=== PATIENT | female | born 1980 | race American Indian/Alaskan Native ===

== ENCOUNTER 2017-02-01 22:41 | Emergency (ER) | payer OTHER ==
[2017-02-01 22:58] VITALS: BP 111/70
[2017-02-01 23:44] LABS: Basophils % (Auto) 0.4 % (0.0-1.8); Eosinophils % (Auto) 2.5 % (0.0-4.3); Hematocrit 30.9 % (30.3-42.9); Mean Corpuscular HGB Conc 33 % (30-34); Mean Corpuscular Hemoglobin 28 pg (28-32); Mean Corpuscular Volume 87 fl (79-97); Platelet Count 287 K/mm3 (140-440); Red Blood Count 3.57 M/mm3 (3.65-5.03); Red Cell Distribution Width 16.8 % (13.2-15.2); White Blood Count 8.9 K/mm3 (4.5-11.0)
--- NOTE | 2017-02-02 00:03 | Emergency Department Report ---
HPI - General Chief Complaint: Vaginal Bleeding Time Seen by Provider: 02/01/17 23:54 - HPI HPI: This is a 36-year-old Afro-[place] female who presents emergency Department with 2 complaints. First the patient has been having a generalized headache for the past 24 hours. She does have a history of headaches that occur "all the time" and says that this feels similar to those. The second issue is that the patient said that she took a home test on Monday, 2 days ago, and it was positive at that time. If she was positive today that would make her with one previous miscarriage. The patient tried a dose of Tylenol for her headache, as she did not want to take anything else while , and says that it did not do much for her discomfort. She is sensitive to light but otherwise denies any slurred speech, or any neurological deficits. She does not have a primary care doctor or MACHINE COREMAKER at this time. The patient had some vaginal bleeding/spotting that began this morning. She denies any abdominal pain however. ED Past Medical Hx - Past Medical History Previous Medical History?: Yes Hx Headaches / Migraines: Yes Hx Asthma: Yes (as child) Additional medical history: Childbirth - Surgical History Past Surgical History?: Yes Additional Surgical History: x 4 - Social History Smoking Status: Never Smoker Substance Use Type: None - Medications Home Medications: Home Medications Medication Instructions Recorded Confirmed Last Taken Type Ibuprofen [Motrin 800 MG tab] 800 mg PO Q8H #45 tablet 01/13/15 05/12/16 Unknown Rx traMADol [Ultram 50 MG tab] 50 mg PO Q6HR PRN #20 tablet 01/13/15 05/12/16 Unknown Rx Butalbit/Acetamin/Caff/Codeine 1 cap PO Q6HR PRN #16 cap 05/12/16 Unknown Rx [Fioricet/Codeine [id number]] Nitrofurantoin [place]/M-Cryst 100 mg PO Q12HR #14 capsule 02/02/17 Unknown Rx [Macrobid CAP] Vit No.130/Iron/FA 1 each PO QDAY #30 tablet 02/02/17 Unknown Rx [ Tablet] ED Review of Systems ROS: Stated complaint: PREG/VAG BLEEDING/MOSHER Other details as noted in HPI Comment: All other systems reviewed and negative Constitutional: denies: chills, fever Eyes: denies: eye pain, eye discharge, vision change ENT: denies: ear pain, throat pain Respiratory: denies: cough, shortness of breath, wheezing Cardiovascular: denies: chest pain, palpitations Gastrointestinal: denies: abdominal pain, nausea, diarrhea Genitourinary: other (vaginal spotting). denies: urgency, dysuria, discharge Musculoskeletal: denies: back pain, joint swelling, arthralgia Skin: denies: rash, lesions Neurological: headache. denies: weakness, numbness, paresthesias Physical Exam - Physical Exam Vital Signs: Vital Signs 02/01/17 22:45 Temperature 98.6 F Pulse Rate 89 Respiratory 20 Rate Blood Pressure 111/70 [Right] O2 Sat by Pulse 100 Oximetry Physical Exam: GENERAL: The patient is well-developed well-nourished. HEENT: Normocephalic. Atraumatic. Extraocular motions are intact. Patient has moist mucous membranes. Pupils equal reactive to light bilaterally. Patient has some photophobia. No nystagmus. NECK: Supple. Trachea is midline. CHEST/LUNGS: Clear to auscultation. There is no respiratory distress noted. HEART/CARDIOVASCULAR: Regular. There is no tachycardia. There is no gallop rub or murmur. ABDOMEN: Abdomen is soft, nontender. Patient has normal bowel sounds. There is no abdominal distention. SKIN: There is no rash. There is no edema. There is no diaphoresis. NEURO: The patient is awake, alert, and oriented. The patient is cooperative. The patient has no focal neurologic deficits. The patient has normal speech. MUSCULOSKELETAL: There is no tenderness or deformity. There is no limitation range of motion. There is no evidence of acute injury. ED Course Vital Signs 02/01/17 22:45 Temperature 98.6 F Pulse Rate 89 Respiratory 20 Rate Blood Pressure 111/70 [Right] O2 Sat by Pulse 100 Oximetry ED Medical Decision Making - Lab Data Result diagrams: 02/01/17 23:14 02/01/17 23:14 - Radiology Data Radiology results: report reviewed Transvaginal/ ultrasound shows a single live intrauterine at about 7 weeks one day. - Medical Decision Making 36-year-old female presents to the emergency department with complaint of vaginal bleeding while after having a home test a few days ago. She also complains of a headache for the past 24 hours but says that this is a typical headache for her. There is no focal, motor or sensory deficits. Cranial nerves are intact. Patient's labs are mostly unremarkable. There is a mild urinary tract infection with 17 white blood cells in the urine. Patient does have a elevated healthy hormone. For this reason she had a transvaginal/ ultrasound came back showing a live intrauterine at 7 weeks. Patient was given a 1 g dose of Tylenol for her headache. She is feeling much better prior to discharge. She was given Macrobid for the urinary tract infection, vitamins and multiple referrals for MACHINE COREMAKER. She will return to the ER with any worsening of her symptoms or any acute distress. - Differential Diagnosis tension headache, migraine headache, , fibroids Critical Care Time: No (tension headache, migraine headache, , fibroids , miscarriage) Critical care attestation.: If time is entered above; I have spent that time in minutes in the direct care of this critically ill patient, excluding procedure time. ED Disposition Clinical Impression: Threatened miscarriage Qualifiers: Weeks of gestation: less than 8 weeks Qualified Code(s): Z3A.01 - Less than 8 weeks gestation of UTI (urinary tract infection) Qualifiers: Urinary tract infection type: acute cystitis Hematuria presence: without hematuria Qualified Code(s): N30.00 - Acute cystitis without hematuria Headache Qualifiers: Headache type: unspecified Headache chronicity pattern: acute headache Intractability: not intractable Qualified Code(s): R51 - Headache Disposition: DISCHARGED TO HOME OR SELFCARE Is pt being admited?: No Condition: Stable Instructions: (ED), Urinary Tract Infection in Women (ED), Acute Headache (ED), Threatened Miscarriage (ED) Additional Instructions: Please follow-up with an MACHINE COREMAKER in the next few days. Return to the emergency department with any worsening of your symptoms or any acute distress. Prescriptions: Nitrofurantoin [place]/M-Cryst [Macrobid CAP] 100 mg PO Q12HR #14 capsule Vit No.130/Iron/FA [ Tablet] 1 each PO QDAY #30 tablet Referrals: PRIMARY MD MITCH [Primary Care Provider] - 3-5 Days AGUSTIN VALDOVINOS MD [Staff Physician] - 3-5 Days MANUEL AZUL MD [Staff Physician] - 3-5 Days Time of Disposition: 01:32
[2017-02-02 00:07] LABS: Alanine Aminotransferase 8 units/L (7-56); Albumin 3.9 g/dL (3.9-5); Albumin/Globulin Ratio 1.4 %; Alkaline Phosphatase 49 units/L (35-129); Anion Gap 16 mmol/L; BUN/Creatinine Ratio 12.85; Bilirubin,Total 0.4 mg/dL (0.1-1.2); Blood Urea Nitrogen 9 mg/dL (7-17); Calcium 8.6 mg/dL (8.4-10.2); Carbon Dioxide 25 mmol/L (22-30); Glucose 79 mg/dL (65-100); Lipase 32 units/L (13-60); Potassium 3.6 mmol/L (3.6-5.0); Sodium 139 mmol/L (137-145); Total Protein 6.7 g/dL (6.3-8.2)
--- NOTE | 2017-02-02 00:53 | Ultrasound Report ---
FINAL REPORT PROCEDURE: US OB TECHNIQUE: Real-time transabdominal and transvaginal sonography of the uterus, placenta, amniotic fluid, adnexa, and fetus was performed with image documentation. Measurements were obtained to determine age/size. M-mode Doppler was used to document heartbeat. CPT 78357 and 98469 HISTORY: , bleeding. COMPARISON: No prior studies are available for comparison. FINDINGS: LMP: 12/21/2016. Clinical age: 6 weeks 0 days. EDC: 09/27/2017. CRL: 10.5 mm, which corresponds to a gestational age of: 7 weeks, 1 days. Yolk Sac: Normal. Embryonic Cardiac Activity: 136 beats per minute. Gestational Sac: Normal. Amniotic fluid: Normal. Cervix: Normal. Right Ovary: 3.5 x 3.2 x 3.3 centimeters. Normal flow. Hypoechoic complex 3 x 2.4 x 2.8 centimeter lesion. Left Ovary: 2.4 x 1.4 x 2.3 centimeters. Normal flow. Uterus: 10.9 x 6 x 6.8 centimeters. Estimated delivery date: 09/19/2017. Other: Minimal free fluid. IMPRESSION: 1. Single live intrauterine gestation at approximately 7 weeks, 1 day. Minimal free fluid. 2. EDC by US 09/19/2017. 3. Complete anatomic survey at 18-20 weeks suggested. At this time probable right ovarian cyst can be re-evaluated.
--- NOTE | 2017-02-02 00:57 | Ultrasound Report ---
FINAL REPORT PROCEDURE: US OB TECHNIQUE: Real-time transabdominal and transvaginal sonography of the uterus, placenta, amniotic fluid, adnexa, and fetus was performed with image documentation. Measurements were obtained to determine age/size. M-mode Doppler was used to document heartbeat. CPT 62170 and 09572 HISTORY: , bleeding. COMPARISON: No prior studies are available for comparison. FINDINGS: LMP: 12/21/2016. Clinical age: 6 weeks 0 days. EDC: 09/27/2017. CRL: 10.5 mm, which corresponds to a gestational age of: 7 weeks, 1 days. Yolk Sac: Normal. Embryonic Cardiac Activity: 136 beats per minute. Gestational Sac: Normal. Amniotic fluid: Normal. Cervix: Normal. Right Ovary: 3.5 x 3.2 x 3.3 centimeters. Normal flow. Hypoechoic complex 3 x 2.4 x 2.8 centimeter lesion. Left Ovary: 2.4 x 1.4 x 2.3 centimeters. Normal flow. Uterus: 10.9 x 6 x 6.8 centimeters. Estimated delivery date: 09/19/2017. Other: Minimal free fluid. IMPRESSION: 1. Single live intrauterine gestation at approximately 7 weeks, 1 day. Minimal free fluid. 2. EDC by US 09/19/2017. 3. Complete anatomic survey at 18-20 weeks suggested. At this time probable right ovarian cyst can be re-evaluated. O
[2017-02-02 01:00] LABS: Bilirubin,Urine NEG (Negative); Blood,Urine MOD (Negative); Ketones,Urine NEG (Negative); Leukocyte Esterase,Urine TR (Negative); Mucus,Urine 2+ /HPF; Nitrite,Urine NEG (Negative)
[2017-02-02] MEDS ORDERED: TYLENOL PO ONE (01:30)
[2017-02-02] MEDS ORDERED: TYLENOL ONE (01:34)
== END 2017-02-02 01:40 | disposition home or self-care (01) ==
LOC: ED 22:41
DX: O20.0 Threatened abortion (principal); Z3A.01 Less than 8 weeks gestation of pregnancy; O23.41 Unspecified infection of urinary tract in pregnancy, first trimester; N39.0 Urinary tract infection, site not specified; R51 Headache; J45.909 Unspecified asthma, uncomplicated
CPT/HCPCS: 36415; 76801; 76817; 80053; 81001; 83690; 84702; 84703; 85025; 86850; 86900; 86901; 99284

== ENCOUNTER 2017-03-08 19:46 | Emergency (ER) | payer OTHER, MEDICAID ==
[2017-03-08] MEDS ORDERED: TYLENOL PO ONE (20:33)
[2017-03-08 21:06] LABS: Basophils % (Auto) 0.3 % (0.0-1.8); Eosinophils % (Auto) 2.6 % (0.0-4.3); Hematocrit 29.4 % (30.3-42.9); Hemoglobin 9.6 gm/dl (10.1-14.3); Mean Corpuscular HGB Conc 33 % (30-34); Mean Corpuscular Hemoglobin 28 pg (28-32); Mean Corpuscular Volume 85 fl (79-97); Platelet Count 297 K/mm3 (140-440); Red Blood Count 3.47 M/mm3 (3.65-5.03); Red Cell Distribution Width 16.1 % (13.2-15.2); White Blood Count 9.6 K/mm3 (4.5-11.0)
[2017-03-09 00:30] LABS: Bilirubin,Urine NEG (Negative); Blood,Urine MOD (Negative); Ketones,Urine NEG (Negative); Leukocyte Esterase,Urine NEG (Negative); Mucus,Urine FEW /HPF; Nitrite,Urine NEG (Negative); Protein,Urine <15 mg/dL mg/dL (Negative); Urobilinogen,Urine < 2.0 mg/dL (<2.0)
--- NOTE | 2017-03-09 00:38 | Ultrasound Report ---
FINAL REPORT PROCEDURE: US OB TRANSVAGINAL TECHNIQUE: Real-time transabdominal and transvaginal sonography of the uterus, placenta, amniotic fluid, adnexa, and fetus was performed with image documentation. Measurements were obtained to determine age/size. M-mode Doppler was used to document heartbeat. CPT 14585 and 04758 HISTORY: preg, vag bleeding COMPARISON: 02/01/2017 FINDINGS: ADDITIONAL GESTATION: None. CRL: 63 mm, which corresponds to a gestational age of: 12 weeks, 5 days. Yolk Sac: Normal. Embryonic Cardiac Activity: 153 beats per minute Gestational Sac: Normal. Amniotic fluid: Normal. Cervix: Normal. Right Ovary: There is a 3 centimeter cyst on the right ovary. Left Ovary: Normal. Estimated delivery date: 09/15/2017 Uterus and adnexa: Normal. IMPRESSION: 1. Single live intrauterine gestation at approximately 12 weeks, 5 days. 2. EDC by US 09/15/2017 3. Complete anatomic survey at 18-20 weeks suggested.
--- NOTE | 2017-03-09 00:39 | Ultrasound Report ---
FINAL REPORT PROCEDURE: US OB transabdominal and TRANSVAGINAL TECHNIQUE: Real-time transabdominal and transvaginal sonography of the uterus, placenta, amniotic fluid, adnexa, and fetus was performed with image documentation. Measurements were obtained to determine age/size. M-mode Doppler was used to document heartbeat. CPT 72666 and 86060 HISTORY: preg, vag bleeding COMPARISON: 02/01/2017 FINDINGS: ADDITIONAL GESTATION: None. CRL: 63 mm, which corresponds to a gestational age of: 12 weeks, 5 days. Yolk Sac: Normal. Embryonic Cardiac Activity: 153 beats per minute Gestational Sac: Normal. Amniotic fluid: Normal. Cervix: Normal. Right Ovary: There is a 3 centimeter cyst on the right ovary. Left Ovary: Normal. Estimated delivery date: 09/15/2017 Uterus and adnexa: Normal. IMPRESSION: 1. Single live intrauterine gestation at approximately 12 weeks, 5 days. 2. EDC by US 09/15/2017 3. Complete anatomic survey at 18-20 weeks suggested.
--- NOTE | 2017-03-09 01:40 | Emergency Department Report ---
ED Abdominal Pain HPI - General Chief Complaint: Vaginal Bleeding Stated Complaint: 12 WKS PREG/SPOTTING BLOOD/CRAMPING Time Seen by Provider: 03/09/17 01:26 Source: patient Mode of arrival: Ambulatory Limitations: No Limitations - History of Present Illness Initial Comments: Patient is a 36-year-old female at approximately 12 weeks gestation presenting to the ER with abdominal pain and vaginal spotting. Patient reports the abdominal pain started after she was lifting a box at work and then she noticed some bright red blood spotting. Patient does report when she was lifting a heavy box she felt some pulling of right lower quadrant of her abdomen. Patient has care with high risk. Otherwise no other complaints MD Complaint: abdominal pain Severity scale (0 -10): 8 - Related Data Previous Rx's Medication Instructions Recorded Last Taken Type Ibuprofen [Motrin 800 MG tab] 800 mg PO Q8H #45 tablet 01/13/15 Unknown Rx traMADol [Ultram 50 MG tab] 50 mg PO Q6HR PRN #20 tablet 01/13/15 Unknown Rx Butalbit/Acetamin/Caff/Codeine 1 cap PO Q6HR PRN #16 cap 05/12/16 Unknown Rx [Fioricet/Codeine [id number]] Nitrofurantoin [place]/M-Cryst 100 mg PO Q12HR #14 capsule 02/02/17 Unknown Rx [Macrobid CAP] Vit No.130/Iron/FA 1 each PO QDAY #30 tablet 02/02/17 Unknown Rx [ Tablet] Allergies Allergy/AdvReac Type Severity Reaction Status Date / Time No Known Allergies Allergy Verified 01/13/15 23:10 ED Review of Systems ROS: Stated complaint: 12 WKS PREG/SPOTTING BLOOD/CRAMPING Other details as noted in HPI Comment: All other systems reviewed and negative ED Past Medical Hx - Past Medical History Previous Medical History?: Yes Hx Headaches / Migraines: Yes Hx Asthma: Yes (as child) Additional medical history: Childbirth - Surgical History Past Surgical History?: Yes Additional Surgical History: x 4 - Social History Smoking Status: Never Smoker Substance Use Type: None - Medications Home Medications: Home Medications Medication Instructions Recorded Confirmed Last Taken Type Ibuprofen [Motrin 800 MG tab] 800 mg PO Q8H #45 tablet 01/13/15 05/12/16 Unknown Rx traMADol [Ultram 50 MG tab] 50 mg PO Q6HR PRN #20 tablet 01/13/15 05/12/16 Unknown Rx Butalbit/Acetamin/Caff/Codeine 1 cap PO Q6HR PRN #16 cap 05/12/16 Unknown Rx [Fioricet/Codeine [id number]] Nitrofurantoin [place]/M-Cryst 100 mg PO Q12HR #14 capsule 02/02/17 Unknown Rx [Macrobid CAP] Vit No.130/Iron/FA 1 each PO QDAY #30 tablet 02/02/17 Unknown Rx [ Tablet] ED Physical Exam - General Limitations: No Limitations General appearance: alert, in no apparent distress - Head Head exam: Present: atraumatic, normocephalic - Eye Eye exam: Present: normal appearance - ENT ENT exam: Present: mucous membranes moist - Neck Neck exam: Present: normal inspection - Respiratory Respiratory exam: Present: normal lung sounds bilaterally. Absent: respiratory distress - Cardiovascular Cardiovascular Exam: Present: regular rate, normal rhythm. Absent: systolic murmur, diastolic murmur, rubs, gallop - GI/Abdominal GI/Abdominal exam: Present: soft, tenderness (MILD rlq), normal bowel sounds. Absent: distended, guarding, rebound - Extremities Exam Extremities exam: Present: normal inspection - Back Exam Back exam: Present: normal inspection - Neurological Exam Neurological exam: Present: alert, oriented X3 - Psychiatric Psychiatric exam: Present: normal affect, normal mood - Skin Skin exam: Present: warm, dry, intact, normal color. Absent: rash ED Course Vital Signs 03/08/17 20:26 Temperature 99.1 F Pulse Rate 93 H Respiratory 18 Rate Blood Pressure 127/70 O2 Sat by Pulse 100 Oximetry ED Medical Decision Making - Lab Data Result diagrams: 03/08/17 20:38 - Radiology Data Radiology results: report reviewed Pelvic ultrasound: Live IUP dated at 12 weeks, heart rate 153 bpm - Medical Decision Making I did discuss the results with the patient. I did express to her the concern for RLQ quadrant pain and for appendicitis. Pt does reports a mechanical muscle strain mechanism to explain the RLQ pain, but to make the patient aware an appendicitis is not completely ruled out, though unlikely. Pt understood and will return to the ED if you abdominal pain does not improve and/or new symptoms of fevers, chills, NVD, SOB, or back pain. Critical care attestation.: If time is entered above; I have spent that time in minutes in the direct care of this critically ill patient, excluding procedure time. ED Disposition Clinical Impression: Abdominal pain, Vaginal bleeding in Disposition: DISCHARGED TO HOME OR SELFCARE Is pt being admited?: No Condition: Stable Instructions: Abdominal Pain (ED), Threatened Miscarriage (ED) Additional Instructions: PLEASE MONITOR YOUR ABDOMINAL PAIN, IF THIS DOSE NOT IMPROVE, PLEASE RETURN TO THE ED IMMEDIATELY Referrals: PRIMARY CARE, [Primary Care Provider] - 3-5 Days
[2017-03-09 03:17] VITALS: BP 130/78
== END 2017-03-09 03:10 | disposition home or self-care (01) ==
LOC: ED 19:46
DX: O46.91 Antepartum hemorrhage, unspecified, first trimester (principal); O26.851 Spotting complicating pregnancy, first trimester; O99.511 Diseases of the respiratory system complicating pregnancy, first trimester; R10.9 Unspecified abdominal pain; J45.909 Unspecified asthma, uncomplicated; G43.909 Migraine, unspecified, not intractable, without status migrainosus; Z3A.12 12 weeks gestation of pregnancy
CPT/HCPCS: 36415; 76801; 76817; 81001; 84702; 85025

== ENCOUNTER 2017-03-10 20:43 | Emergency (ER) | payer OTHER, MEDICAID ==
[2017-03-10] MEDS ORDERED: TYLENOL PO ONE (21:57)
[2017-03-10 22:23] LABS: Basophils % (Auto) 0.3 % (0.0-1.8); Eosinophils % (Auto) 1.1 % (0.0-4.3); Hematocrit 29.5 % (30.3-42.9); Hemoglobin 9.7 gm/dl (10.1-14.3); Mean Corpuscular HGB Conc 33 % (30-34); Mean Corpuscular Hemoglobin 28 pg (28-32); Mean Corpuscular Volume 84 fl (79-97); Platelet Count 308 K/mm3 (140-440); Red Blood Count 3.51 M/mm3 (3.65-5.03); Red Cell Distribution Width 15.8 % (13.2-15.2); White Blood Count 9.6 K/mm3 (4.5-11.0)
[2017-03-10 22:45] LABS: Alanine Aminotransferase 9 units/L (7-56); Albumin 3.6 g/dL (3.9-5); Albumin/Globulin Ratio 1.1 %; Alkaline Phosphatase 46 units/L (35-129); Anion Gap 18 mmol/L; BUN/Creatinine Ratio 16.66; Bilirubin,Total 0.7 mg/dL (0.1-1.2); Blood Urea Nitrogen 10 mg/dL (7-17); Calcium 8.6 mg/dL (8.4-10.2); Carbon Dioxide 21 mmol/L (22-30); Chloride 102.5 mmol/L (98-107); Glucose 92 mg/dL (65-100); Potassium 3.3 mmol/L (3.6-5.0); Sodium 138 mmol/L (137-145); Total Protein 6.8 g/dL (6.3-8.2)
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
[2017-03-11] MEDS ORDERED: TYLENOL ONE (02:26)
[2017-03-11] MEDS ORDERED: TYLENOL PO ONE (02:49)
[2017-03-11 02:52] VITALS: BP 129/74
--- NOTE | 2017-03-11 09:27 | XRay Report ---
Right ankle 2 views: History: Right ankle pain. Findings: No bony or articular abnormality. No fracture or dislocation. Tiny plantar spur posterior calcaneum. Impression: Tiny plantar spur posterior calcaneum..
== END 2017-03-11 02:30 | disposition home or self-care (01) ==
LOC: ED 20:43
DX: O9A.211 Injury, poisoning and certain other consequences of external causes complicating pregnancy, first trimester (principal); R10.31 Right lower quadrant pain; R10.32 Left lower quadrant pain; M25.571 Pain in right ankle and joints of right foot; G43.909 Migraine, unspecified, not intractable, without status migrainosus; J45.909 Unspecified asthma, uncomplicated; Z87.891 Personal history of nicotine dependence; Z3A.13 13 weeks gestation of pregnancy; V89.2XXA Person injured in unspecified motor-vehicle accident, traffic, initial encounter; Y93.89 Activity, other specified; Y99.9 Unspecified external cause status; Y92.410 Unspecified street and highway as the place of occurrence of the external cause
CPT/HCPCS: 36415; 73600; 76801; 80053; 83690; 84702; 85025; 85460; 86850; 86900; 86901; 99285; J2790; 85461

== ENCOUNTER 2017-09-08 14:20 | Outpatient (CLI) | payer OTHER, MEDICAID ==
--- NOTE | 2017-09-12 16:00 | Vascular Lab Report ---
Left Lower Extremity Venous Duplex Study: Reason for Exam: Pain and swelling of the left lower extremity. Comments on the Right: A limited duplex study was done of the proximal veins of the right lower extremity. All veins visualized are freely compressible without evidence of internal echogenicity. Flow is spontaneous and phasic throughout. No evidence of acute or chronic thrombus is seen in any of the vessels visualized. Comments on the Left: All veins visualized are freely compressible without evidence of internal echogenicity. Flow is spontaneous and phasic throughout. No evidence of acute or chronic thrombus is seen in any of the vessels visualized. Soft tissue changes are consistent with swelling Impression: No evidence of acute or chronic deep venous thrombosis in the left lower extremity.
== END 2017-09-08 14:21 | disposition home or self-care (01) ==
LOC: VAS 14:20
PROVIDERS: ATTEND Obstetrics & Gynecology
DX: R22.42 Localized swelling, mass and lump, left lower limb (principal); M79.662 Pain in left lower leg

== ENCOUNTER 2017-09-12 09:53 | Inpatient (IN) | payer OTHER, MEDICAID ==
--- NOTE | 2017-09-11 10:05 | History and Physical Report ---
History of Present Illness Date of examination: 09/08/17 Date of admission: 09/12/17 Chief complaint: Here for repeat c/s x 4 with BTL. History of present illness: Pt here for repeat c/s. All risk, benefits and alternatives were d/w and all questions were addressed and answered. Consents signed and placed on the chart. EDC Calculations LMP: 10/05/2011 EDC Confirmation: 10/05/2011 Gestational Age: 8 weeks Past History : 5 Term Births: 3 Premature Births: 0 Para: 3 Mult. Births: 0 Prev : 3 Prev. attempt? none Aborta: 1 Elect. Ab: 0 Spont. Ab: 1 # 1 Delivery date: 05/10/1997 Weeks Gestation: 41 Delivery type: Hours of labor: >12 Anesthesia type: epidural Delivery location: [facility] Sex: Male weight: [id number] Name: Be Comments: Failed induction # 2 Delivery date: 02/08/2002 Weeks Gestation: 39 labor: no Delivery type: Anesthesia type: spinal Delivery location: [place] Sex: Female weight: 6lbs Name: Eric # 3 Delivery date: 2006 Delivery type: SAB Comments: D&C # 4 Delivery date: 01/01/2007 Weeks Gestation: 39 Delivery type: Anesthesia type: spinal Delivery location: [facility] Sex: Male weight: 7lb 2oz Name: Feng Comments: Scheduled Past Medical History: Asthma Past Surgical History: x 3 D&C: Family History: Family History of Diabetes Family History of Hypertension No Family History of Breast Cancer No Family History of Cervical Cancer No Family History of Colon Cancer No Family History of Ovarvian Cancer No Family History of DVT/PE on OCP Social History: Patient is Homemaker Risk Factors: Tobacco use: quit Year quit: 12/2010 Drug use: no Alcohol use: no Past Medical History Surgery (Non-obstetrics/gynecology nurse): x 3 D&C: Abnormal PAP: negative Uterine Anomaly: negative Family Hx: Family History of Diabetes Family History of Hypertension No Family History of Breast Cancer No Family History of Cervical Cancer No Family History of Colon Cancer No Family History of Ovarvian Cancer No Family History of DVT/PE on OCP Social Hx: Patient is Homemaker Infection History Hx of STD: chlamydia Personal hx. of genital herpes: no Partner hx. of genital herpes: no Genetic History Congenital Heart Defect: Mom: no Dad: no Louise Disease: Mom: no Dad: no Thalassemia Mom: no Dad: no Neural Tube Defect Mom: no Dad: no Down's Syndrome Mom: no Dad: no Rafael-Sachs Mom: no Dad: no Sickle Cell Disease/Trait Mom: no Dad: no Hemophilia Mom: no Dad: no Muscular Dystrophy Mom: no Dad: no Cystic Fibrosis Mom: no Dad: no Sadie Chorea Mom: no Dad: no Mental Retardation Mom: no Dad: no Fragile X Mom: no Dad: no Other Genetic/Chromosomal Disorder Mom: no Dad: no Child w/other defect Mom: no Dad: no Enviromental Exposures Xray Exposure: no Medication, drug, or alcohol use since LMP: no Exposure to Cat Liter: no Hx of Parvovirus (Fifth Disease): no Active Medications: PRE- TABS ( [id number]) 1 po q day as directed ALBUTEROL SULFATE (2.5 MG/3ML) 0.083% NEBU (ALBUTEROL SULFATE) 2 puffs q 4-6 hrs prn Current Allergies: No known allergies Past History Past Medical History: asthma Past Surgical History: section (x3), D&C STUDENT LIFE ADVISOR History: denies: abnormal PAP smear Social history: no significant social history, - Obstetrical History Expected Date of Delivery: 09/19/17 Actual Gestation: 38 Week(s) 6 Day(s) : 6 Para: 3 Number of Living Children: 3 Medications and Allergies Allergies Allergy/AdvReac Type Severity Reaction Status Date / Time No Known Allergies Allergy Verified 01/13/15 23:10 Home Medications Medication Instructions Recorded Confirmed Last Taken Type Ibuprofen [Motrin 800 MG tab] 800 mg PO Q8H #45 tablet 01/13/15 05/12/16 Unknown Rx traMADol [Ultram 50 MG tab] 50 mg PO Q6HR PRN #20 tablet 01/13/15 05/12/16 Unknown Rx Butalbit/Acetamin/Caff/Codeine 1 cap PO Q6HR PRN #16 cap 05/12/16 Unknown Rx [Fioricet/Codeine [id number]] Nitrofurantoin Newberry/M-Cryst 100 mg PO Q12HR #14 capsule 02/02/17 Unknown Rx [Macrobid CAP] Vit No.130/Iron/Folic 1 each PO QDAY #30 tablet 02/02/17 Unknown Rx [ Tablet] Acetaminophen/Codeine [Tylenol #3] 1 tab PO Q6H PRN #7 tab 03/11/17 Unknown Rx Ondansetron [Zofran TAB] 4 mg PO Q8HR PRN #15 tablet 03/11/17 Unknown Rx Review of Systems All systems: negative - Physical Exam Breasts: Positive: deferred Cardiovascular: Normal S1, Normal S2 Lungs: Positive: Clear to auscultation Abdomen: Positive: normal appearance, soft. Negative: tenderness, guarding Genitourinary (Female): Positive: other (deferred) Extremities: Positive: edema (2+ bilaterally left >right. s/p doppler which was negative for DVT on 09/08/17) - Obstetrical FHR: auscultation normal Results All other labs normal. Assessment and Plan - Patient Problems (1) 39 weeks gestation of Status: Acute (2) Previous delivery affecting Status: Acute Plan to address problem: -admit and prepare for c/s -consents signed and on the chart. (3) Advanced maternal age (AMA) in Status: Acute
[~2017-09-12 09:53] MED LIST: ANCEF/STERILE WATER 2 GM/20 ML 2 GM/20 ML SYRINGE IV NR; BICITRA PO SCH; PEPCID IV SCH; PITOCin/NS 20 UNIT/1000ML DRIP 20 UNITS/1,000 ML BAG IV SCH; REGLAN IV SCH
[2017-09-12] MEDS: LACTATED RINGERS 1,000 ML IV SCH ×2 (10:50→11:24)
--- NOTE | 2017-09-12 10:51 | Anesthesia Consultation ---
Anesthesia Consult and Med Hx Date of service: 09/12/17 - Airway Anesthetic Teeth Evaluation: Good ROM Head & Neck: Adequate Mental/Hyoid Distance: Adequate Mallampati Class: Class II Intubation Access Assessment: Probably Good - Pre-Operative Health Status ASA Pre-Surgery Classification: ASA2 Proposed Anesthetic Plan: Epidural, Spinal - Pulmonary Hx Asthma: No COPD: No Hx Pneumonia: No - Cardiovascular System Hx Hypertension: Yes (2010 PREECLAMPSIA) - Central Nervous System Hx Seizures: No Hx Psychiatric Problems: No - Endocrine Hx Renal Disease: No Hx End Stage Renal Disease: No Hx Hypothyroidism: No Hx Hyperthyroidism: No - Hematic Hx Anemia: Yes (THIS , TAKES IRON) Hx Sickle Cell Disease: No - Other Systems Hx Alcohol Use: No
[2017-09-12] MEDS ORDERED: DILAUDID IV PRN ×3 (10:52→11:30)
--- NOTE | 2017-09-12 10:52 | Anesthesia Day of Surgery ---
Anesthesia Day of Surgery - Day of Surgery Patient Examined: Yes Patient H&P Reviewed: Yes Patient is NPO: Yes
[2017-09-12 10:57] LABS: Hematocrit 26.8 % (30.3-42.9); Hemoglobin 8.3 gm/dl (10.1-14.3); Mean Corpuscular HGB Conc 31 % (30-34); Mean Corpuscular Volume 76 fl (79-97); Platelet Count 358 K/mm3 (140-440); Red Blood Count 3.55 M/mm3 (3.65-5.03); White Blood Count 8.8 K/mm3 (4.5-11.0)
[2017-09-12 10:59] LABS: Mean Corpuscular Hemoglobin 23 pg (28-32)
[2017-09-12 11:00] LABS: Red Cell Distribution Width 20.4 % (13.2-15.2)
[2017-09-12] MEDS ORDERED: SODIUM CHLORIDE FLUSH SYRINGE 10 ML IV PRN ×2 (11:00→14:00)
[2017-09-12] MEDS ORDERED: PHENERGAN PR PRN (11:30)
[2017-09-12] MEDS ORDERED: NARCAN 0.4 MG/1 ML IV PRN (11:30)
[2017-09-12] MEDS ORDERED: NEO SYNEPHRINE/NS Syringe(OR USE) IV ONE (11:30)
[2017-09-12] MEDS ORDERED: BENADRYL IV PRN (11:30)
[2017-09-12] MEDS ORDERED: MORPHINE ONE (11:48)
[2017-09-12] MEDS ORDERED: NACL 0.9% 500 ML 500 ML IV ONE (11:57)
[2017-09-12 12:04] LABS: Basophils % (Manual) 0 % (0.0-1.8); Blastocytes % (Manual) 0 %
[2017-09-12 12:05] LABS: Acanthocytes Few; Anisocytosis 1+; Burr Cells Few; Eosinophils % (Manual) 0 % (0.0-4.3); Hypochromasia 2+; Poikilocytosis 1+; Tear Drop Cells Few
[2017-09-12 12:06] LABS: Diff Status Complete; Large Platelets Few; Polychromasia Few
[2017-09-12 12:07] LABS: Platelet Estimate Cons
[2017-09-12] MEDS ORDERED: ANCEF/STERILE WATER 2 GM/20 ML IV ONE (12:11)
[2017-09-12] MEDS ORDERED: WATER FOR IRRIG STERILE IR ONE (12:18)
[2017-09-12] MEDS ORDERED: NACL 0.9% IR ONE (12:18)
[2017-09-12] MEDS ORDERED: NACL 0.9% 1000 ML 1,000 ML ONE (12:28)
[2017-09-12] MEDS ORDERED: METHERGINE IM ONE (12:37)
[2017-09-12] MEDS ORDERED: ZOFRAN ONE (12:50)
--- NOTE | 2017-09-12 13:32 | Operative Report ---
Operative Report Operative Report: Date of procedure: 09/12/2017 Pre-operative diagnosis: 39 weeks gestation At that's maternal age Previous section 4 Anemia Post-operative diagnosis: Same Procedure name(s): Repeat low transverse section via Pfannenstiel skin incision Surgeon: Dr. López Auto Machinist: JAVIER Anesthesia: Epidural EBL: 800 mL Urine output: 100 mL of clear urine at end of the procedure Fluids: 1800 mL Findings: Adhesions of the omentum to the anterior dominant wall Liveborn male weight 8 lbs. 6 oz. Apgars of 8 and 9 at one and 5 minutes Grossly normal fallopian tubes and ovaries bilaterally Indications: Patient presents for repeat section. All risks benefits and alternatives were discussed with the patient. Consents were signed and placed on the chart. Procedure: Patient was taking to the operating room. Patient was then prepped and draped in sterile fashion after anesthesia was found to be adequate. A low transverse skin incision was made with the scalpel through previous incisional scar and carried down to the underlying layer of fascia with the Bovie. The fascia was then incised in the midline and this incision was extended bilaterally with the Bovie. The superior aspect of the fascia was grasped with Cornell clamps tented upward and dissected off of the anterior rectus muscles with the scalpel. In similar fashion the inferior aspect of the fascia was grasped with Cornell clamps tented upward and dissected off of the anterior rectus muscles. The rectus muscles were then bluntly divided in the midline. The peritoneum was identified and entered into sharply. The Nikhil retractor was placed. The bladder blade was placed. The bladder flap was not created. The bladder blade was replaced. A lower transverse uterine incision was made with the scalpel and extended bilaterally with the bandage scissors. Artificial rupture of membranes was performed yielding [clear amniotic fluid]. The 's head was then delivered atraumatically. The anterior shoulder and rest of delivered without difficulty. Nuchal cord 1 was easily reduced. The umbilical cord was clamped x2. The cord was cut. The infant was then placed in sterile bassinet. The cord blood was collected. The placenta was manually extracted in its entirety. The uterus was exteriorized and cleared of all clots and debris. The uterine incision was closed using 0 Vicryl in a running locking fashion. Figure of 8 sutures were used along the incision line to secure excellent hemostasis. The posterior cul-de-sac was copiously irrigated. The uterus was returned to the abdomen. The gutters were also irrigated. The anterior rectus muscles were reapproximated using 3-0 Vicryl. The anterior rectus fascia was reapproximated using 0 Vicryl in a running fashion. The subcuticular fat was reapproximated using 2-0 Vicryl in a running fashion. The skin was reapproximated with 4-0 Monocryl in a subcuticular stitch. The patient tolerated the procedure well. Sponge lap and needle counts were all correct x3. Patient was taken to the recovery room awake and in stable condition.
[2017-09-12] MEDS ORDERED: D5LR 1,000 ML IV SCH (14:00)
[2017-09-12] MEDS ORDERED: TUCKS PAD TP PRN (14:00)
[2017-09-12] MEDS ORDERED: LANSINOH TP PRN (14:00)
[2017-09-12] MEDS: TORADOL IV PRN (15:48)
[2017-09-12] MEDS ORDERED: LACTATED RINGERS 1,000 ML IV ONE (18:17)
--- NOTE | 2017-09-12 18:19 | Event Note ---
Date: 09/12/17 Called by nursing due to pt having decreased UOP over the last two hours. Will given a bolus of fluid at this time. All other vitials are stable and pt shows no excessive bleeding at this time.
[2017-09-12] MEDS ORDERED: LACTATED RINGERS 500 ML IV SCH (19:00)
[2017-09-12] MEDS: ANCEF/NS 1 GM/50 ML 1 GM/50 ML BAG IV SCH (19:51)
--- NOTE | 2017-09-12 20:49 | Event Note ---
Date: 09/12/17 Pt with 50cc out after bolus of 500ml @1900 and now with 10cc out after 1hour. Will flush the cath at this time and cont both IV hydration and po fluid intake. Will monitor closely at this time. No s/sx of internal bleeding at this time. AFVSS. Incision c/d/i.
[2017-09-12] MEDS ORDERED: LACTATED RINGERS 1,000 ML IV SCH (21:00)
--- NOTE | 2017-09-12 21:14 | Progress Note ---
Assessment and Plan - Patient Problems (1) Decreased urine output Current Visit: Yes Status: Acute Plan to address problem: Per Dr. López's order, IV bolus in progress Urine in hugo tubing, concentrated, no blood in hugo tubing or bag Instructed RN to place urometer and observe closely (2) Anemia Current Visit: Yes Status: Acute Qualifiers: Anemia type: A Vitamin B12 deficiency anemia type: V Folate deficiency anemia type: F Bone marrow failure anemia type: B Hemolytic anemia type: H Other causes of anemia: acute posthemorrhagic Chronic kidney disease stage: C Qualified Code(s): D62 - Acute posthemorrhagic anemia Plan to address problem: No evidence of active bleeding, hgb was 8.3 on admission Subjective - Subjective Date of service: 09/12/17 Principal diagnosis: DOS c/s Interval history: Pt resting in bed, no complaints, asked to evaluate patient with 50ml UO over 3hrs Patient reports: pain well controlled Objective - Vital Signs Latest vital signs: Vital Signs Temp Pulse Resp BP BP Pulse Ox 09/12/17 19:30 98.6 F 73 18 115/75 09/12/17 15:30 98.0 F 92 H 20 144/93 09/12/17 14:26 63 18 129/83 100 09/12/17 14:18 66 14 129/79 100 09/12/17 14:07 62 14 136/75 100 09/12/17 13:48 66 13 137/75 100 09/12/17 13:38 64 13 125/81 100 09/12/17 13:32 59 L 15 132/70 100 09/12/17 13:30 64 16 132/70 100 09/12/17 13:25 97.8 F 69 16 127/70 100 09/12/17 10:51 58 L 82 L 09/12/17 10:49 125 H 82 L 09/12/17 10:47 79 77 L 09/12/17 10:46 55 L 82 L 09/12/17 10:45 105 H 82 L 09/12/17 10:44 57 L 82 L 09/12/17 10:43 112 H 82 L 09/12/17 10:42 110 H 80 L 09/12/17 10:41 97 H 82 L 09/12/17 10:40 40 L 82 L 09/12/17 10:39 36 L 82 L 09/12/17 10:37 41 L 94 09/12/17 10:36 64 96 09/12/17 10:35 69 146/76 99 09/12/17 10:30 98.3 F 65 18 146/76 99 Intake and Output 09/12/17 09/12/17 09/12/17 06:59 14:59 22:59 Intake Total 2750 1030 Output Total 200 50 Balance 2550 980 Intake: IV 2750 Lactated Ringers 1,000 ml 1000 @ 2250 mls/hr IV PREOP LEEANNE Rx#:[id number] Oral 730 Intake, Free Water 300 Output: Urine 200 50 Indwelling Catheter 50 Other: Total, Intake Amount 250 Total, Output Amount 50 Weight 92.533 kg Patient Weight 09/13/17 06:59 Weight 92.533 kg - Exam Narrative Exam: Patient alert and appropriately responsive Vulva: both: normal (pad changed~1hr ago, no blood on pad) Uterus: Present: firm, fundal height below umbilicus Extremities: Present: normal. Absent: tenderness, edema Incision: Present: dressed - Labs Labs: Abnormal lab results 09/12/17 09/12/17 Range/Units 10:40 10:40 RBC 3.55 L (3.65-5.03) M/mm3 Hgb 8.3 L (10.1-14.3) gm/dl Hct 26.8 L (30.3-42.9) % MCV 76 L (79-97) fl MCH 23 L (28-32) pg RDW 20.4 H (13.2-15.2) % Seg Neuts % (Manual) 77.0 H (40.0-70.0) % Lymphocytes % (Manual) 13.0 L (13.4-35.0) % Nucleated RBC % 1.0 H (0.0-0.9) % Lymphocytes # (Manual) 1.1 L (1.2-5.4) K/mm3 Crossmatch See Detail
[2017-09-13] MEDS: TORADOL IV PRN ×2 (00:03→07:54)
[2017-09-13] MEDS: PEPCID IV PRN ×2 (00:54→09:02)
[2017-09-13 01:04] LABS: Hematocrit 16.7 % (30.3-42.9); Hemoglobin 4.9 gm/dl (10.1-14.3)
[2017-09-13] MEDS ORDERED: TYLENOL PO ONE (01:20)
[2017-09-13] MEDS: NACL 0.9% 500 ML 500 ML IV SCH ×2 (01:39→01:43)
[2017-09-13] MEDS ORDERED: BENADRYL PO ONE (02:00)
--- NOTE | 2017-09-13 04:29 | Event Note ---
Date: 09/13/17 HGB noted to be 4.9 with Hct of 17. Will proceed with transfusion at this time. Pt still w/o obvious signs of active bleeding and vs with the exception of decreased urine output. Pt did respond to the boluses given overnight which is c /w volume depletion with the anemia. Transfusion in progress right now.Will keep hugo in place for not to closely monitor uop and con't until has at least 30cc/hr. Baseline hgb is 9.2(initial ob) and was 8.0 at 24 wks. Pt was placed on iron therapy. Hgb on admission was slightly higher(8.3) but likely was not accurate given pt was fasting and seems to have been dehydrated. Pt likely was not compliant with iron therapy given low h/h on admission. Will monitor closely.
[2017-09-13] MEDS ORDERED: BOOSTRIX IM ONE (06:00)
--- NOTE | 2017-09-13 09:00 | Progress Note ---
Assessment and Plan patient resting in bed without complaints. dressing removed, incision dry and intact. Lochia scant. Hugo patent with small amount of urine in tube. VSSAF. per RN, transfusion complete @ 0630, CBC ordered for 0830 (not yet drawn). Discussed with patient possible need for additional units of blood depending on urine output and repeat H&H results. Dr. Crowder aware of status and will consult as results are available. - Patient Problems (1) delivery delivered Current Visit: Yes Status: Acute (2) Anemia Current Visit: Yes Status: Acute Qualifiers: Anemia type: A Iron deficiency anemia type: I Vitamin B12 deficiency anemia type: V Folate deficiency anemia type: F Bone marrow failure anemia type: B Hemolytic anemia type: H Other causes of anemia: acute posthemorrhagic Chronic kidney disease stage: C Qualified Code(s): D62 - Acute posthemorrhagic anemia Plan to address problem: repeat cbc (post transfusion) ordered for 0830 waiting to be drawn. discussed possible need for additional units with patient (3) Decreased urine output Current Visit: Yes Status: Acute Plan to address problem: will keep hugo in place with urinemeter strict hourly I&O with documentation Subjective - Subjective Date of service: 09/13/17 Principal diagnosis: postop day #1 s/p repeat c/s, anemia, transfusion Patient reports: appetite normal, pain well controlled, flatus, no bowel movement, no nauseated : doing well, bottle feeding Objective - Vital Signs Latest vital signs: Vital Signs Temp Pulse Resp BP BP Pulse Ox 09/13/17 05:45 98.4 F 68 16 119/68 09/13/17 05:15 98.5 F 64 16 122/61 09/13/17 04:49 98.5 F 66 18 131/65 09/13/17 04:19 98.5 F 66 16 131/65 09/13/17 03:49 98.6 F 74 18 108/46 09/13/17 03:19 98.5 F 74 18 109/76 09/13/17 02:49 98.5 F 79 18 101/79 09/13/17 02:45 98.6 F 75 16 121/63 09/13/17 02:23 98.6 F 77 18 119/73 09/13/17 01:37 18 09/13/17 00:03 18 09/13/17 00:00 98.6 F 74 18 128/76 09/12/17 19:30 98.6 F 73 18 115/75 09/12/17 15:30 98.0 F 92 H 20 144/93 09/12/17 14:26 63 18 129/83 100 09/12/17 14:18 66 14 129/79 100 09/12/17 14:07 62 14 136/75 100 09/12/17 13:48 66 13 137/75 100 09/12/17 13:38 64 13 125/81 100 09/12/17 13:32 59 L 15 132/70 100 09/12/17 13:30 64 16 132/70 100 09/12/17 13:25 97.8 F 69 16 127/70 100 09/12/17 10:51 58 L 82 L 09/12/17 10:49 125 H 82 L 09/12/17 10:47 79 77 L 09/12/17 10:46 55 L 82 L 09/12/17 10:45 105 H 82 L 09/12/17 10:44 57 L 82 L 09/12/17 10:43 112 H 82 L 09/12/17 10:42 110 H 80 L 09/12/17 10:41 97 H 82 L 09/12/17 10:40 40 L 82 L 09/12/17 10:39 36 L 82 L 09/12/17 10:37 41 L 94 09/12/17 10:36 64 96 09/12/17 10:35 69 146/76 99 09/12/17 10:30 98.3 F 65 18 146/76 99 Intake and Output 09/12/17 09/13/17 09/13/17 23:59 07:59 15:59 Intake Total 1030 503.333 Output Total 200 Balance 830 503.333 Intake: IV 3.333 NaCl 0.9% 500 ml 500 ml @ 3.333 50 mls/hr IV DIRECT LEEANNE Rx#:[id number] Oral 730 200 Intake, Free Water 300 300 Blood Product 0 Leukoreduced Rbc Part 2 0 Unit [id number] Leukoreduced Red Blood 0 Cells Unit [id number] Output: Urine 200 Indwelling Catheter 200 Other: Total, Intake Amount 250 200 Total, Output Amount 150 - Exam Breasts: Present: normal Cardiovascular: Present: Regular rate Lungs: Present: Clear to auscultation, Normal air movement Abdomen: Present: normal appearance, soft Vulva: both: normal Uterus: Present: normal, firm, fundal height at umbilicus Extremities: Present: normal Deep Tendon Reflex Grade: Normal +2 Incision: Present: normal, dry, intact - Labs Labs: Abnormal lab results 09/12/17 09/12/17 09/13/17 Range/Units 10:40 10:40 00:43 RBC 3.55 L (3.65-5.03) M/mm3 Hgb 8.3 L 4.9 L* D (10.1-14.3) gm/dl Hct 26.8 L 16.7 L* D (30.3-42.9) % MCV 76 L (79-97) fl MCH 23 L (28-32) pg RDW 20.4 H (13.2-15.2) % Seg Neuts % (Manual) 77.0 H (40.0-70.0) % Lymphocytes % (Manual) 13.0 L (13.4-35.0) % Nucleated RBC % 1.0 H (0.0-0.9) % Lymphocytes # (Manual) 1.1 L (1.2-5.4) K/mm3 Crossmatch See Detail
[2017-09-13] MEDS: FEOSOL PO SCH (09:02)
--- NOTE | 2017-09-13 10:56 | Event Note ---
Date: 09/13/17 rn reports urine output 20mls last hour, 0830 cbc still not drawn. RN instructed to draw lab herself if labor relations worker not there by 11am as it is now 2.5hours past due. Will update Dr. Crowder with lab results.
[2017-09-13 11:12] LABS: Basophils % (Auto) 0.3 % (0.0-1.8); Eosinophils % (Auto) 0.3 % (0.0-4.3); Hemoglobin 6.4 gm/dl (10.1-14.3); Mean Corpuscular HGB Conc 33 % (30-34); Mean Corpuscular Volume 78 fl (79-97); Platelet Count 249 K/mm3 (140-440); Red Cell Distribution Width 19.1 % (13.2-15.2); White Blood Count 12.5 K/mm3 (4.5-11.0)
[2017-09-13 11:15] LABS: Hematocrit 19.5 % (30.3-42.9); Mean Corpuscular Hemoglobin 26 pg (28-32)
[2017-09-13] MEDS ORDERED: NACL 0.9% 500 ML 500 ML IV ONE (11:22)
--- NOTE | 2017-09-13 11:26 | Event Note ---
Date: 09/13/17 HGb increased to 6.4 appropriately after two unties. Suspect uop low due to severe volume depletion. Will given and additional two units and con't hugo cath at this time to keep accurate account of the UOP.
[2017-09-13] MEDS: NORCO 5/325 PO PRN ×3 (13:34→23:49)
[2017-09-13] MEDS ORDERED: NACL 0.9% 1000 ML 1,000 ML IV ONE (13:58)
[2017-09-13] MEDS: MOTRIN PO PRN (14:03)
--- NOTE | 2017-09-13 14:35 | Progress Note ---
Subjective Date of service: 09/13/17 Principal diagnosis: postop day #1 s/p repeat c/s, anemia, transfusion Interval history: Patient seen post op day 1, pain level 1-2 - on oral meds, satisfied with anesthesia, not allowed to ambulate at this time - receiving RBCs and has catheter. Objective - Constitutional Vitals: Vital Signs - 12hr 09/13/17 09/13/17 09/13/17 02:45 02:49 03:19 Temperature 98.6 F 98.5 F 98.5 F Pulse Rate 75 79 74 Respiratory 16 18 18 Rate Blood Pressure 121/63 101/79 109/76 Blood Pressure [Left] O2 Sat by Pulse Oximetry 09/13/17 09/13/17 09/13/17 03:49 04:19 04:49 Temperature 98.6 F 98.5 F 98.5 F Pulse Rate 74 66 66 Respiratory 18 16 18 Rate Blood Pressure 108/46 131/65 131/65 Blood Pressure [Left] O2 Sat by Pulse Oximetry 09/13/17 09/13/17 09/13/17 05:15 05:45 08:37 Temperature 98.5 F 98.4 F 98.8 F Pulse Rate 64 68 70 Respiratory 16 16 18 Rate Blood Pressure 122/61 119/68 Blood Pressure 118/70 [Left] O2 Sat by Pulse Oximetry 09/13/17 09/13/17 09/13/17 12:10 12:53 13:13 Temperature 98.9 F 98.9 F 99.2 F Pulse Rate 85 88 86 Respiratory 22 20 20 Rate Blood Pressure Blood Pressure 134/87 128/79 132/71 [Left] O2 Sat by Pulse 100 100 100 Oximetry 09/13/17 13:43 Temperature 98.7 F Pulse Rate 81 Respiratory 20 Rate Blood Pressure Blood Pressure 133/84 [Left] O2 Sat by Pulse 100 Oximetry - Labs CBC & Chem 7: 09/13/17 09:30 Labs: Abnormal lab results 09/12/17 09/13/17 09/13/17 Range/Units 10:40 00:43 09:30 WBC 12.5 H (4.5-11.0) K/mm3 RBC 2.50 L (3.65-5.03) M/mm3 Hgb 4.9 L* D 6.4 L (10.1-14.3) gm/dl Hct 16.7 L* D 19.5 L* (30.3-42.9) % MCV 78 L (79-97) fl MCH 26 L (28-32) pg RDW 19.1 H (13.2-15.2) % Lymph % (Auto) 9.7 L (13.4-35.0) % [place] % (Auto) 7.5 H (0.0-7.3) % [place] # 0.9 H (0.0-0.8) K/mm3 Seg Neutrophils % 82.2 H (40.0-70.0) % Seg Neutrophils # 10.3 H (1.8-7.7) K/mm3 Crossmatch See Detail
[2017-09-13] MEDS ORDERED: NACL 0.9% 1000 ML 1,000 ML IV SCH (20:00)
[2017-09-13] MEDS: ANCEF/NS 1 GM/50 ML 1 GM/50 ML BAG IV SCH (20:16)
[2017-09-13 21:02] LABS: Hematocrit 22.8 % (30.3-42.9); Hemoglobin 7.5 gm/dl (10.1-14.3)
[2017-09-14] MEDS: ZOFRAN IV PRN ×2 (01:32→18:47)
[2017-09-14] MEDS: NORCO 5/325 PO PRN ×4 (03:33→19:55)
--- NOTE | 2017-09-14 08:28 | Progress Note ---
<KATHY RAMIREZ - Last Filed: 09/14/17 08:24> Assessment and Plan - Patient Problems (1) delivery delivered Onset Date: ~09/12/17 Current Visit: Yes Status: Acute Plan to address problem: pt w/o complaint States she feels much better after transfusion. VSS FF below umb Lochia scant Incision D&I Post-transfusion H&H 06/10 Pt is asymptomatic Stable s/p c/s and transfusion of 4 units PRC. P: continue pathway Advance diet and activity as tolerated. Subjective - Subjective Date of service: 09/14/17 ("I feel much better today.") Principal diagnosis: postop day #2 s/p repeat c/s, anemia, transfusion Patient reports: appetite normal, voiding normally, pain well controlled, ambulating normally : doing well Objective - Vital Signs Latest vital signs: Vital Signs Temp Pulse Resp BP BP Pulse Ox 09/14/17 04:33 16 09/14/17 03:33 16 09/14/17 00:50 98.9 F 70 18 133/68 09/13/17 23:49 18 09/13/17 17:07 98.7 F 67 20 121/66 100 09/13/17 16:47 98.5 F 70 20 127/72 100 09/13/17 16:07 98.6 F 65 20 127/68 99 09/13/17 15:20 98.6 F 83 20 137/76 100 09/13/17 15:00 98.6 F 84 20 141/74 100 09/13/17 13:43 98.7 F 81 20 133/84 100 09/13/17 13:13 99.2 F 86 20 132/71 100 09/13/17 12:53 98.9 F 88 20 128/79 100 09/13/17 12:10 98.9 F 85 22 134/87 100 09/13/17 08:37 98.8 F 70 18 118/70 Intake and Output 09/13/17 09/14/17 09/14/17 22:59 06:59 14:59 Intake Total 970 480 Output Total 1500 1400 Balance -530 -920 Intake: Oral 720 480 Blood Product 250 Leukoreduced Red Blood 250 Cells Unit [id number] Output: Urine 1500 1400 Indwelling Catheter 1500 800 Void 600 Other: Total, Intake Amount 360 240 Total, Output Amount 500 600 # Voids Void 1 - Exam Breasts: Present: normal Cardiovascular: Present: Regular rate Lungs: Present: Normal air movement Abdomen: Present: normal appearance, soft, normal bowel sounds Uterus: Present: normal, firm, fundal height below umbilicus Extremities: Present: normal Deep Tendon Reflex Grade: Normal +2 Incision: Present: normal, dry, intact - Labs Labs: Abnormal lab results 09/12/17 09/13/17 09/13/17 Range/Units 10:40 09:30 20:45 WBC 12.5 H (4.5-11.0) K/mm3 RBC 2.50 L (3.65-5.03) M/mm3 Hgb 6.4 L 7.5 L (10.1-14.3) gm/dl Hct 19.5 L* 22.8 L (30.3-42.9) % MCV 78 L (79-97) fl MCH 26 L (28-32) pg RDW 19.1 H (13.2-15.2) % Lymph % (Auto) 9.7 L (13.4-35.0) % [place] % (Auto) 7.5 H (0.0-7.3) % [place] # 0.9 H (0.0-0.8) K/mm3 Seg Neutrophils % 82.2 H (40.0-70.0) % Seg Neutrophils # 10.3 H (1.8-7.7) K/mm3 Crossmatch See Detail <EDWARD HARPER D - Last Filed: 09/14/17 22:16> Assessment and Plan - Patient Problems (1) Decreased urine output Current Visit: Yes Status: Acute (2) Anemia Current Visit: Yes Status: Acute Qualifiers: Anemia type: A Iron deficiency anemia type: I Vitamin B12 deficiency anemia type: V Folate deficiency anemia type: F Bone marrow failure anemia type: B Hemolytic anemia type: H Other causes of anemia: acute posthemorrhagic Chronic kidney disease stage: C Qualified Code(s): D62 - Acute posthemorrhagic anemia Subjective - Subjective Interval history: no complaints, desires d/c home tomorrow Objective - Vital Signs Latest vital signs: Vital Signs Temp Pulse Resp BP 09/14/17 18:12 98.2 F 88 18 135/69 09/14/17 08:15 98.6 F 97 H 18 136/77 09/14/17 04:33 16 09/14/17 03:33 16 09/14/17 00:50 98.9 F 70 18 133/68 09/13/17 23:49 18 Intake and Output 09/14/17 09/14/17 09/14/17 06:59 14:59 22:59 Intake Total 480 240 360 Output Total 1400 Balance -920 240 360 Intake: Oral 480 240 360 Output: Urine 1400 Indwelling Catheter 800 Void 600 Other: Total, Intake Amount 240 240 360 Total, Output Amount 600 # Voids Void 1 1 1
[2017-09-14] MEDS: FEOSOL PO SCH (09:02)
[2017-09-14] MEDS: MOTRIN PO PRN ×3 (09:02→22:43)
[2017-09-15] MEDS: MOTRIN PO PRN ×2 (05:12→12:07)
[2017-09-15] MEDS: NORCO 5/325 PO PRN (08:34)
--- NOTE | 2017-09-15 09:15 | Progress Note ---
Assessment and Plan patient c/o tenderness in left leg, + homans sign. Dopplers ordered. lochia scant, 130's/60-70's, H&H stable. patient desires d/c home, will d/c home if doppler study is neg for DVT. - Patient Problems (1) delivery delivered Onset Date: ~09/12/17 Current Visit: Yes Status: Acute (2) Anemia Current Visit: Yes Status: Acute Qualifiers: Anemia type: A Iron deficiency anemia type: I Vitamin B12 deficiency anemia type: V Folate deficiency anemia type: F Bone marrow failure anemia type: B Hemolytic anemia type: H Other causes of anemia: acute posthemorrhagic Chronic kidney disease stage: C Qualified Code(s): D62 - Acute posthemorrhagic anemia (3) Decreased urine output Current Visit: Yes Status: Resolved (4) Tenderness of left lower extremity Current Visit: Yes Status: Acute Plan to address problem: doppler ordered Subjective - Subjective Date of service: 09/15/17 Principal diagnosis: postop day #3 s/p repeat c/s, anemia, transfusion Patient reports: appetite normal, voiding normally, pain well controlled, flatus , ambulating normally, no dizzy ambulation, no nauseated [place]: doing well, bottle feeding Objective - Vital Signs Latest vital signs: Vital Signs Temp Pulse Resp BP 09/15/17 08:34 20 09/15/17 00:40 98.8 F 61 137/74 09/14/17 18:12 98.2 F 88 18 135/69 Intake and Output 09/14/17 09/15/17 09/15/17 23:59 07:59 15:59 Intake Total 600 480 Balance 600 480 Intake: Oral 600 480 Other: Total, Intake Amount 240 240 # Voids Void 1 1 - Exam Breasts: Present: normal Cardiovascular: Present: Regular rate Lungs: Present: Clear to auscultation, Normal air movement Abdomen: Present: normal appearance, soft, normal bowel sounds Vulva: both: normal Uterus: Present: normal, firm, fundal height at umbilicus Extremities: Present: normal Comments: + left homans sign w/ tenderness - doppler ordered.
--- NOTE | 2017-09-15 09:18 | Discharge Summary ---
Providers - Providers Date of Admission: 09/12/17 09:53 Date of discharge: 09/15/17 (desires d/c home) Attending physician: WINSOME BENAVIDES Primary care physician: [facility] Hospitalization Reason for admission: section Delivery: Procedure: repeat low transverse Incision: normal, dry, intact Other procedures: none complications: other (anemia, transfusion) Discharge diagnosis: IUP at term delivered [place] baby: male Hospital course: Cesarian delivery, blood transfusion for anemia. Condition at discharge: Good Disposition: DC-01 TO HOME OR SELFCARE - Discharge Diagnoses (1) delivery delivered Status: Acute (2) Anemia Status: Acute Qualifiers: Anemia type: A Iron deficiency anemia type: I Vitamin B12 deficiency anemia type: V Folate deficiency anemia type: F Bone marrow failure anemia type: B Hemolytic anemia type: H Other causes of anemia: acute posthemorrhagic Chronic kidney disease stage: C Qualified Code(s): D62 - Acute posthemorrhagic anemia (3) Tenderness of left lower extremity Status: Acute Plan - Discharge Medications Prescriptions: Docusate Sodium [Colace] 100 mg PO BID PRN #60 capsule PRN Reason: Constipation Ferrous Sulfate [Feosol 325 MG tab] 325 mg PO BID #60 tablet Ibuprofen [Motrin 800 MG tab] 800 mg PO Q8HR PRN #30 tablet PRN Reason: Pain Lidocain2.5%/Prilocai2.5% [Emla] 5 gm TP ONCE #1 tube oxyCODONE /ACETAMINOPHEN [Percocet 5/325] 1 tab PO Q4HR #30 tab - Provider Discharge Summary Activity: routine, no sex for 6 weeks, no heavy lifting 4 weeks, no strenuous exercise Diet: routine Instructions: routine Additional instructions: [] Smoking cessation referral if applicable(refer to patient education folder for contact #) [] Refer to [facility]'s [facility] Booklet Call your doctor immediately for: * Fever > 100.5 * Heavy vaginal bleeding ( >1 pad per hour) * Severe persistent headache * Shortness of breath * Reddened, hot, painful area to leg or breast * Drainage or odor from incision. * Keep incision clean and dry at all times and follow doctor's instructions regarding bathing/showering - Follow up plan Follow up: PRIMARY CARE, [Primary Care Provider] - 7 Days ALBANIA CASTILLO CNM [Advanced Practice Nurse] - 7 Days (Congratulations!! Please call [phone] to schedule your incision check and your son's circumcision in 1 week. bring EMLA cream to your son's appointment and await further instructions. Call for any questions or concerns.) Forms: [facility] Discharge Summary
[2017-09-15 10:00] VITALS: BP 142/81
[2017-09-15] MEDS: FEOSOL PO SCH (10:27)
--- NOTE | 2017-09-18 07:32 | Vascular Lab Report ---
Left Lower Extremity Venous Duplex Study: Reason for Exam: Positive Homans sign. Comments on the Right: A limited duplex study was done of the proximal veins of the right lower extremity. All veins visualized are freely compressible without evidence of internal echogenicity. Flow is spontaneous and phasic throughout. No evidence of acute or chronic thrombus is seen in any of the vessels visualized. Comments on the Left: All veins visualized are freely compressible without evidence of internal echogenicity. Flow is spontaneous and phasic throughout. No evidence of acute or chronic thrombus is seen in any of the vessels visualized. Impression: No evidence of acute or chronic deep venous thrombosis in the left lower extremity.
== END 2017-09-15 12:30 | disposition home or self-care (01) | DRG 765 ==
LOC: APU 09:53 → OB 15:31
PROVIDERS: ADMIT Obstetrics & Gynecology; ATTEND Obstetrics & Gynecology
PROC: 10D00Z1 Extraction of Products of Conception, Low, Open Approach (ICD-10-PCS; principal; 2017-09-12)
PROC: 30233N1 Transfusion of Nonautologous Red Blood Cells into Peripheral Vein, Percutaneous Approach (ICD-10-PCS; 2017-09-12)
DX: O34.211 Maternal care for low transverse scar from previous cesarean delivery (principal); O10.92 Unspecified pre-existing hypertension complicating childbirth; Z37.0 Single live birth; O99.02 Anemia complicating childbirth; Z3A.39 39 weeks gestation of pregnancy; D64.9 Anemia, unspecified; Z87.891 Personal history of nicotine dependence
CPT/HCPCS: 36415; 85007; 85014; 85018; 85025; 86850; 86900; 86901; 86920; C9250; J0690; J1170; J1885; J2210; J2270; J2370; J2405; J2590; J2765; J7030; J7040; J7120; P9016

== ENCOUNTER 2019-08-01 20:01 | Emergency (ER) | payer OTHER, MEDICAID ==
[2019-08-01 21:03] VITALS: BP 134/81
--- NOTE | 2019-08-01 22:14 | XRay Report ---
RIGHT HIP 2 VIEW(S) INDICATION / CLINICAL INFORMATION: right hip pain COMPARISON: None available. FINDINGS: AP pelvis and frog-leg lateral view of the right hip BONES / JOINT(S): No acute fracture or subluxation. No significant arthritis. SOFT TISSUES: No significant abnormality. ADDITIONAL FINDINGS: None. Signer Name: Clayton Espinoza MD Signed: 08/01/2019 10:09 PM Workstation Name: [id number]
[2019-08-01] MEDS ORDERED: TORADOL IM ONE (23:31)
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
== END 2019-08-02 00:16 | disposition home or self-care (01) ==
LOC: ED 20:01
DX: M25.551 Pain in right hip (principal); R51 Headache; I10 Essential (primary) hypertension; G43.909 Migraine, unspecified, not intractable, without status migrainosus; F17.200 Nicotine dependence, unspecified, uncomplicated; V49.59XA Passenger injured in collision with other motor vehicles in traffic accident, initial encounter; Y93.89 Activity, other specified; Y92.488 Other paved roadways as the place of occurrence of the external cause; Y99.8 Other external cause status
CPT/HCPCS: 73502; 96372; 99283; J1885